=== PATIENT | female | born 1985 | race Caucasian/White ===

== ENCOUNTER 2023-07-03 10:09 | Emergency (ER) | payer SELFPAY ==
--- NOTE | ~2023-07-03 | CT_ITS ---
Non-contrast CT scan of the Abdomen and Pelvis Clinical indication: Right flank pain Technique: 2.5 mm axial scans were obtained through the abdomen and pelvis without intravenous or or al contrast. Dose reduction technique was used on this scan by utilizing automated exposure control a nd iterative reconstruction technique. The dose-length product (DLP) was 660.95 mGy-cm. Findings: Images through the lung bases reveal no abnormalities. Questional minimal right hydronephrosis. No definite renal or ureteral stones seen currently. Probabl e small pelvic phleboliths the right side rather than ureteral stones. The liver, spleen, pancreas, gallbladder, and adrenals appear normal. There is no aortic aneurysm. There is no evidence of bowel obstruction. Normal appendix. Images through the pelvis were performed. There is no evidence of ascites or lymphadenopathy. Probabl e uterine fibroids present. Urinary bladder demonstrates possible mild wall thickening and mild periv esical infiltrative change. Impression: Suspected cystitis. Correlate with urinalysis. Questionable minimal right hydronephrosis. Correlate for recently passed stone. No definite renal or ureteral stones seen currently. Uterine fibroids. Reviewed, dictated and finalized at location . T [employer]LECTOR Impression: Suspected cystitis. Correlate with urinalysis. Questionable minimal right hydronephrosis. Correlate for recently passed stone. No definite renal or ureteral stones seen currently. Uterine fibroids.
[2023-07-03 11:38] VITALS: BP 176/110; PULSE 85; RESP 16; TEMP 36.9; O2SAT 99
[2023-07-03 11:52] LABS: Basophils Percent Auto 0.3 % (0.2-1.2); Eosinophils Absolute Auto 0.1 K/mm3 (0-0.3); Eosinophils Percent Auto 0.5 % (0-4.4); Hematocrit 40.7 % (37.0-47.0); Hemoglobin 13.2 g/dL (12.0-15.0); Immature Granulocyte Absolute 0.04 K/mm3 (0.00-0.031); Immature Granulocyte Percent A 0.3 % (0-0.5); Lymphocytes Absolute Auto 1.47 K/mm3 (0.9-3.2); Lymphocytes Percent Auto 11.5 % (18.3-44.2); Mean Corpuscular HGB Conc 32.4 g/dl (32-36); Mean Corpuscular Hemoglobin 32.4 pg (26-34); Mean Platelet Volume 11.3 fl (7.4-10.4); Monocytes Absolute Auto 0.9 K/mm3 (0.1-0.6); Monocytes Percent Auto 7.2 % (2.6-8.5); Neutrophils Absolute Auto 10.3 K/mm3 (1.3-6.7); Neutrophils Percent Auto 80.2 % (45.5-73.1); Platelet Count Result 236 k/mm3 (150-375); Red Blood Count 4.07 M/mm3 (4.2-5.4); Red Cell Distribution Width 12.5 % (11.5-14.5); White Blood Count 12.8 K/mm3 (4.5-10.0)
[2023-07-03 11:59] LABS: Alanine Aminotransferase 18 U/L (6-35); Albumin Level 4.3 g/dL (3.5-5.1); Alkaline Phosphatase 84 U/L (38-126); Anion Gap 11 mmol/L (8-16); Aspartate Amino Transferase 30 U/L (14-36); Bilirubin,Total 0.8 mg/dL (0.2-1.3); Blood Urea Nitrogen 6 mg/dL (7-17); Calcium 9.3 mg/dL (8.4-10.2); Carbon Dioxide 20 mmol/L (22-30); Chloride 105 mmol/L (98-107); Estimated Glomerular Filt Rate > 60; Glucose 96 mg/dL (65-110); Lipase 65 U/L (23-300); Potassium 3.7 mmol/L (3.4-5.0); Sodium 136 mmol/L (137-145)
[2023-07-03 12:14] LABS: Appearance Urine Turbid (Clear); Bacteria Urine 4+ /hpf; Bilirubin Urine Negative (Negative); Blood Urine 3+ (Negative); Color Urine Dark Yellow (Yellow); Glucose Urine UA Negative (Negative); Ketones Urine 2+ mg/dL (Negative); Leukocyte Esterase Ur 3+ LEU/UL (Negative); Mucus Urine Present /lpf; Nitrate Urine Negative (Negative); Protein Urine 3+ mg/dL (Negative); RBC Urine >100 /hpf (0-2); Specific Grav Ur 1.016 (1.001-1.035); Squamous Epithelial Cell Urine Few /hpf (Few); Urobilinogen Urine 0.2 mg/dL (<2.0); WBC Clumps Urine Present /HPF; WBC Urine >100 /hpf
[2023-07-03 12:23] LABS: Add Urine Microscopic? YES
--- NOTE | 2023-07-03 12:48 | ED.GENADULT ---
HPI - General Adult General Chief complaint: Urogenital-Female Stated complaint: flank pain Time Seen by Provider: 07/03/23 10:56 Source: patient Mode of arrival: ambulatory Limitations: no limitations History of Present Illness HPI narrative: Patient is a 37-year-old female who presents the ED with report of right flank pain and urinary symptoms. Patient reports having urinary frequency, urgency, dysuria, hematuria over the last 3-4 days. This morning she woke up with pain in her right lateral abdomen/flank region, which prompted her presentation. She took ibuprofen prior to arrival with some improvement of pain. Denies previous history of kidney stones. Denies nausea, vomiting, fevers. Related Data Allergies Allergy/AdvReac Type Severity Reaction Status Date / Time bacitracin Allergy Unknown Verified 07/03/23 11:40 Review of Systems Review of Systems: CONSTITUTIONAL: Denies fever, chills, or sweats. RESPIRATORY: Denies cough or dyspnea. GASTROINTESTINAL: See HPI GENITOURINARY: See HPI. MUSCULOSKELETAL: See HPI. NEUROLOGIC: Denies headache, dizziness, numbness, or weakness. All systems reviewed & are unremarkable except as noted in HPI and below Exam Narrative: GENERAL: Well appearing, well-nourished, non-toxic, in no acute distress. HEAD: Normocephalic, atraumatic. RESPIRATORY: Airway patent, respirations nonlabored. Clear to auscultation bilaterally, no rales, rhonchi, wheezing. CARDIOVASCULAR: Regular rate and rhythm without murmurs, rubs, or gallops. ABDOMINAL: Soft, mild tenderness in right mid abdomen/lateral abdomen, nondistended. Normoactive BS. No significant CVA tenderness to percussion. MUSCULOSKELETAL: Moves all extremities. No gross deformities. SKIN: Warm, dry, normal color. NEURO: A&O X3. Speech clear. Cranial nerves II-XII grossly intact. Steady gait. No ataxic movements. PSYCHIATRIC: Appropriate mood and affect. Normal interaction. Course Vital Signs Vital signs: Vital Signs Temperature 98.5 F 07/03/23 11:38 Pulse Rate 85 07/03/23 11:38 Respiratory Rate 16 07/03/23 11:38 Blood Pressure 176/110 H 07/03/23 11:38 Pulse Oximetry 99 07/03/23 11:38 Temperature 98.5 F 07/03/23 14:08 Pulse Rate 76 07/03/23 14:08 Respiratory Rate 15 07/03/23 14:08 Blood Pressure 128/73 07/03/23 14:08 Pulse Oximetry 100 07/03/23 14:08 Medical Decision Making [facility] Narrative Medical decision making narrative: Patient presented to ED with several day history of urinary complaints, right flank/abdominal pain. Vital signs stable upon arrival. Patient mildly hypertensive upon arrival, improved without intervention. CBC with leukocytosis of 12.8. Neutrophil predominance. No bandemia. CMP unremarkable. Bicarb slightly low at 20, stable kidney function. Fluids ongoing. Urine consistent with infection. Sent for culture. Given dose of ceftriaxone in the ED. CT scan of abdomen pelvis obtained to rule out stone, showing evidence of cystitis, showing possible minimal hydronephrosis, which could represent a recently passed stone. No active ureteral stones at this time. Patient does report having an episode of worsening pain last night. May have passed a stone. No previous history of stones. Will provide patient with Urology information for follow-up as an outpatient, Bactrim for oral antibiotics for pyelonephritis type picture. Advised patient to stay well hydrated, continue Tylenol and ibuprofen as needed for pain. Discussed strict return precautions. She agrees with plan. Discharged in stable condition. Medical Records Medical records reviewed: Yes I reviewed the external patient's medical records. Vital Signs Vital Signs: Vital Signs Temperature 98.5 F 07/03/23 11:38 Pulse Rate 85 07/03/23 11:38 Respiratory Rate 16 07/03/23 11:38 Blood Pressure 176/110 H 07/03/23 11:38 Pulse Oximetry 99 07/03/23 11:38 Temperature 98.5 F 07/03/23 14:08 Pulse R
[2023-07-03] MEDS: SODIUM CHLORIDE 0.9% IV 1,000 ML 999 ML IV CONT (13:00)
[2023-07-03 14:08] VITALS: BP 128/73; PULSE 76; RESP 15; TEMP 36.9; O2SAT 100
== END 2023-07-03 14:09 | disposition home or self-care (01) ==
PROVIDERS: Emergency Provider Physician Assistant
DX: N10 Acute pyelonephritis (principal); N13.30 Unspecified hydronephrosis
CPT/HCPCS: 36415; 74176; 80053; 81001; 81025; 83690; 85025; 87077; 87086; 87186; 96365; 99284; J0696; J7030